=== PATIENT | female | born 1955 | race Caucasian/White ===

== ENCOUNTER 2016-05-25 21:28 | Emergency (ER) | payer BC, OTHER ==
[~2016-05-25] VITALS: Ht 154.9 cm; Wt 110.5 kg
[~2016-05-25 21:28] MED LIST: ASPCH81X PO; ESCI10TA17 PO; LISI5TAB3 PO
[2016-05-25 21:32] VITALS: TEMP 36.5; Ht 154.9 cm; Wt 110.5 kg
[2016-05-25] MEDS ORDERED: CHOLCAP5 PO (21:57)
[2016-05-25] MEDS ORDERED: ASPI81TA28 PO (21:57)
[2016-05-25] MEDS ORDERED: CZR25 PO (21:57)
[2016-05-25] MEDS ORDERED: LXP/20 PO (21:57)
[2016-05-25] MEDS ORDERED: MULT-580 PO (21:59)
[2016-05-25] MEDS ORDERED: CLR10 PO (21:59)
[2016-05-25] MEDS ORDERED: DOXYCYCLINE HYCLATE 100 MG CAP PO STA (22:59)
[2016-05-25] MEDS ORDERED: DOXY100C PO (23:03)
[2016-05-25 23:11] VITALS: BP 178/92; PULSE 58; O2SAT 95
--- NOTE | 2016-05-26 01:09 | EMERGENCY ROOM VISIT NOTE ---
ED Visit Note First contact with patient: 22:31 CHIEF COMPLAINT: Tick bite HISTORY OF PRESENT ILLNESS: This 61-year-old female patient presents to the emergency department after they noticed a tick embedded in the right side breast tonight. The patient did try to remove it. It had been on for as long as 2 or 3 days. The patient has been gardening the past few days, and did not notice the insect until last night. The patient's tetanus shot is reportedly up- to-date. The patient denies any rashes, fevers, chills, or lightheadedness. The patient denies joint tenderness. REVIEW OF SYSTEMS: A 6 system review of systems was completed with positives and pertinent negatives listed in the HPI. ALLERGIES: See EMR MEDICATIONS: See EMR PMH: See EMR SOCIAL HISTORY: Lives no clear PHYSICAL EXAM: Vital Signs: Reviewed Nurse's notes, vital signs stable. GENERAL : White female, in no acute distress, well-developed, well-nourished. SKIN: There is a partially dismantled tick embedded in the patient's medial right breast. There is a and increasing zone of inflammation and eccymosis around the spot where the tick is. The skin is otherwise clear. NEUROLOGICAL: Alert and oriented to person place and time, cooperative. Sensory and motor functions grossly intact. ED COURSE: Physical exam and history were performed. Nursing notes and EMR were reviewed. The patient appears to have suffered a tick bite to her right medial breast. The area was explored and there is no significant foreign body/ insect remaining in the wound. The concern is for the rash itself, as it does have an early appearance of a bull's-eye. The patient will be started on doxycycline for erythema migrans. She is to follow with her primary care physician with any ongoing or persisting symptoms. Problem List Medical Problems: (1) Appendectomy Status: Resolved (2) Benign hypertension Status: Chronic (3) Bilateral salpingectomy with oophorectomy Status: Resolved (4) Bypass gastroenterostomy Status: Resolved (5) CARDIAC DYSRHYTHMIAS NEC Status: Resolved (6) Cholecystectomy Status: Resolved (7) Coronary artery disease Status: Chronic (8) gastric bypass Status: Resolved (9) Heart disease Status: Chronic (10) Hyperlipidemia Status: Chronic (11) HYPERTENSION NOS Status: Chronic (12) Hysterectomy Status: Resolved (13) Implantation of internal cardiac defibrillator Status: Resolved (14) Migraine Status: Chronic (15) MIGRAINE UNSPECIFIED W/O INTRACT MGRN W/O STATUS MIGRAINOSUS Status: Chronic (16) Myocardial infarction Status: Resolved (17) Oophorectomy Status: Resolved Current/Historical Medications Scheduled Aspirin (Aspirin Ec), 81 MG PO QAM Cholecalciferol (Vitamin D3), 5,000 INTER.UNIT PO QAM Doxycycline Hyclate (Vibramycin), 100 MG PO BID Escitalopram Oxalate (Escitalopram Oxalate), 20 MG PO QAM Loratadine (Claritin), 10 MG PO QAM Losartan Potassium (Losartan Potassium), 25 MG PO QPM Multiple Vitamins W/ Minerals (Hair/Skin/Nails), 2 TABS PO QAM Allergies Coded Allergies: Morphine (Verified Allergy, Severe, chest pain, 10/16/15) Latex1 -Allergic Contact Dermititis (Verified Allergy, Mild, RASH WITH RUBBER GLOVES, 10/16/15) [place] (Verified Allergy, Unknown, 10/16/15) Vital Signs Date Time Temp Pulse Resp B/P Pulse Ox O2 Delivery O2 Flow Rate FiO2 05/25/16 23:11 58 18 178/92 95 05/25/16 21:32 36.5 114 18 186/80 95 Room Air Departure Information Impression Primary Impression: Erythema migrans (Lyme disease) Dispostion Home / Self-Care Condition GOOD Prescriptions Doxycycline Hyclate (VIBRAMYCIN) 100 Mg Cap 100 MG PO BID for 21 Days, #42 CAP Prov: Kevin Carcamo PA-C 05/25/16 Forms HOME CARE DOCUMENTATION FORM, IMPORTANT VISIT INFORMATION Patient Instructions My [facility] Additional Instructions You were seen and evaluated today on an emergency basis only. This is not a substitute for, or an effort to provide, complete comprehensive medical care. It is not possible to recognize and treat all injuries or illnesses in a single emergency department visit. For this reason it is recommended that you followup with your primary care physician next week for any ongoing or persistent symptoms. Doxycycline twice a day for 21 days. TAKE THIS MEDICATION WITH A MEAL. Avoid exposure to the sun/UV light while on this medication or use frequent application of SPF 50 or higher due to increased sensitivity to UV rays and high risk for severe sarah. You are welcome to return to the emergency department anytime with new, worsening, or concerning symptoms.
[2016-07-10] MEDS ORDERED: FLVHFA110 INH (11:19)
[2016-07-10] MEDS ORDERED: CYAN1DRO IM (11:19)
[2016-07-10] MEDS ORDERED: LOSA50TA6 PO (11:19)
[2016-07-10] MEDS ORDERED: VNTHFA/IN INH (11:19)
[2016-07-10] MEDS ORDERED: ATRIN INH (11:19)
[2016-07-10] MEDS ORDERED: LORA10TA44 PO (11:19)
== END 2016-05-25 23:10 | disposition home or self-care (01) ==
LOC: C.EDB 21:30 → C.EDD 23:10
DX: A26.0 Cutaneous erysipeloid (principal); A69.20 Lyme disease, unspecified; S20.161A Insect bite (nonvenomous) of breast, right breast, initial encounter; W57.XXXA Bitten or stung by nonvenomous insect and other nonvenomous arthropods, initial encounter; Y93.H2 Activity, gardening and landscaping; I10 Essential (primary) hypertension; I25.10 Atherosclerotic heart disease of native coronary artery without angina pectoris; I51.9 Heart disease, unspecified; E78.5 Hyperlipidemia, unspecified; I25.2 Old myocardial infarction; Z95.810 Presence of automatic (implantable) cardiac defibrillator; Z98.84 Bariatric surgery status; Z90.710 Acquired absence of both cervix and uterus; Z79.82 Long term (current) use of aspirin

== ENCOUNTER → 2016-07-16 | Day surgery (SDC) | payer BC ==
[2016-07-10 11:20] VITALS: Ht 157.5 cm; Wt 105.5 kg
[~2016-07-16] VITALS: Ht 157.5 cm; Wt 105.5 kg
[~2016-07-16] MED LIST changes: -ASPCH81X PO; +ASPI81TA28 PO; +ATRIN INH; +CHOLCAP5 PO; +CYAN1DRO IM; -ESCI10TA17 PO; +FLVHFA110 INH; +GUAI1TAB55 PO; +LIDOCAINE HCL 2% 2 ML VIAL (20MG/ML) ONE; -LISI5TAB3 PO; +LORA10TA44 PO; +LORA10TA51 PO; +LOSA50TA6 PO; +LXP/20 PO; +METH4PAK PO; +MIDAZOLAM HCL 1 MG/ML 2ML VIAL ONE; +MULT-580 PO; +ONDANSETRON INJ 2 MG/ML 2 ML VIAL ONE; +PHEN-652 PO; +PROPOFOL IV EMULSION 10 MG/ML 20 ML VIAL IV ONE; +SODIUM CHLORIDE 0.9% 500ML 500 ML IV ONE; +VNTHFA/IN INH
--- NOTE | 2016-07-16 12:57 | Endo History and Physical ---
History & Physical Date of Service: Jul 16, 2016. Chief Complaint: Family history of colon cancer Referring Physician: Haily BOTELLO History of Present Illness 61 yo CF who presents for colonoscopy secondary to family history of colon cancer. Past Surgical History Hx Cardiac Surgery: Yes (HEART CATH X2, NO STENTS) Hx Internal Defibrillator: Yes (X3 (MOST RECENT 2008)) Hx Pacemaker: Yes (X3 (MOST RECENT 2008)) Hx Abdominal Surgery: Yes (RUSSELL BSO, EXPLORATORY LAP WITH ROCCO AND APPY AND RUPTURED OVARY) Hx of Implantable Prosthesis: No Hx Post-Op Nausea and Vomiting: No Hx Cancer Surgery: No Hx Thoracic Surgery: No Hx Orthopedic: No Hx Urinary Tract Surgery: No Family History Colon CA Social History Smoking Status: Never Smoker Hx Substance Use: No Hx Alcohol Use: No Allergies Coded Allergies: Morphine (Verified Allergy, Severe, CHEST PAIN, 07/16/16) Latex1 -Allergic Contact Dermititis (Verified Allergy, Mild, RASH WITH RUBBER GLOVES, 07/16/16) [place] (Verified Allergy, Unknown, HIVES, 07/16/16) Current Medications Reported Home Medications Medications Dose Route/Sig Max Daily Dose Days Date Category Ventolin Hfa (Albuterol) 200 Puffs/45334 Mcg Aers 2-4 Puffs INH Q6H PRN 07/10/16 Reported Atrovent Hfa (Ipratropium [place]) 200 Puffs/3400 Mcg Aers 2 Puffs INH QID PRN 07/10/16 Reported Flovent Hfa (Fluticasone Propionate) 120 Puffs/99454 Mcg Aero 2 Puffs INH BID PRN 07/10/16 Reported Vitamin B12 (Cyanocobalamin) 3,000 Mcg/Ml Miguel 1 Dose IM [id number] 07/10/16 Reported Allergy (Loratadine) 10 Mg Tab 1 Tab PO QAM 07/10/16 Reported Cozaar (Losartan Potassium) 50 Mg Tab 50 Mg PO QPM 07/10/16 Reported Hair/Skin/Nails (Multiple Vitamins W/ Minerals) 1 Tab Tab 2 Tabs PO QAM 05/25/16 Reported Vitamin D3 (Cholecalciferol) 5,000 Unit Cap 5,000 Inter.unit PO QAM 05/25/16 Reported Escitalopram Oxalate 20 Mg Tab 20 Mg PO QAM 05/25/16 Reported Aspirin Ec (Aspirin) 81 Mg Tab 81 Mg PO QAM 2/24/17 Reported Vital Signs Weight (Kilograms): 105.45 Height (Feet): 5 Height (Inches): 2 Date Time Temp Pulse Resp B/P Pulse Ox O2 Delivery O2 Flow Rate FiO2 07/16/16 12:24 36.7 52 18 166/74 94 Room Air Physical Exam General Appearance: WD/WN, no apparent distress Respiratory/Chest: Auscultation: breath sounds normal Cardiovascular: Heart Auscultation: RRR Abdomen: Bowel Sounds: normal Inspection & Palpation: soft, non-distended, no tenderness, guarding & rebound Assessment and Plan Assessment: 61 yo CF who presents for colonoscopy secondary to family history of colon cancer. Plan: Proceed with colonoscopy.
--- NOTE | 2016-07-16 13:23 | Discharge Instructions ---
Endoscopy Patient Instructions Date / Procedure(s) Performed Jul 16, 2016. Colonoscopy Allergy Information Coded Allergies: Morphine (Verified Allergy, Severe, CHEST PAIN, 07/16/16) Latex1 -Allergic Contact Dermititis (Verified Allergy, Mild, RASH WITH RUBBER GLOVES, 07/16/16) [place] (Verified Allergy, Unknown, HIVES, 07/16/16) Discharge Date / Findings Jul 16, 2016. Diverticulosis Medication Instructions Stopped Medication(s): took ASA yesterday Restart Stopped Medication(s): OK to resume all medications today as prescribed Reported Home Medications Medications Dose Route/Sig Max Daily Dose Days Date Category Ventolin Hfa (Albuterol) 200 Puffs/19673 Mcg Aers 2-4 Puffs INH Q6H PRN 07/10/16 Reported Atrovent Hfa (Ipratropium [place]) 200 Puffs/3400 Mcg Aers 2 Puffs INH QID PRN 07/10/16 Reported Flovent Hfa (Fluticasone Propionate) 120 Puffs/33651 Mcg Aero 2 Puffs INH BID PRN 07/10/16 Reported Vitamin B12 (Cyanocobalamin) 3,000 Mcg/Ml Miguel 1 Dose IM [id number] 07/10/16 Reported Allergy (Loratadine) 10 Mg Tab 1 Tab PO QAM 07/10/16 Reported Cozaar (Losartan Potassium) 50 Mg Tab 50 Mg PO QPM 07/10/16 Reported Hair/Skin/Nails (Multiple Vitamins W/ Minerals) 1 Tab Tab 2 Tabs PO QAM 05/25/16 Reported Vitamin D3 (Cholecalciferol) 5,000 Unit Cap 5,000 Inter.unit PO QAM 05/25/16 Reported Escitalopram Oxalate 20 Mg Tab 20 Mg PO QAM 05/25/16 Reported Aspirin Ec (Aspirin) 81 Mg Tab 81 Mg PO QAM 05/25/16 Reported Provider Instructions Activity Restrictions - No exercising or heavy lifting for 24 hours. - Do not drink alcohol the day of the procedure. - Do not drive a car or operate machinery until the day after the procedure. - Do not make any important decisions or sign important papers in 24 hours after the procedure. Following Day: - Return to full activity which may include returning to work/school. Diet Start your diet with liquids and light foods (jello, soup, juice, toast). Then eat your usual diet if not nauseated. Treatment For Common After Affects For mild abdominal pain, bloating, or excessive gas: - Rest - Eat lightly - Lie on right side Follow-Up Information Follow-up with Haily BOTELLO as scheduled Anesthesia Information What You Should Know You have had a procedure that required some medicine to reduce anxiety and discomfort. This treatment is called moderate sedation. After receiving the treatment, you may be sleepy, but you will be able to breathe on your own. The effects of the treatment may last for several hours. Follow these instructions along with Activity/Diet recommendations noted above: * Do NOT do anything where dizziness or clumsiness would be dangerous. * Rest quietly at home today, then you can be up and about tomorrow. * Have a responsible person stay with you the rest of today. * You may have had an I.V. today. If so, you may take the dressing off later today. Recommendations Call your doctor if: * Trouble breathing * Continuous vomiting for more than 24 hours * Temperature above 101 degrees * Severe abdominal pain or bloating * Pain not relieved by pain medicine ordered * There is increased drainage or redness from any incision * A large amount of rectal bleeding greater than 2-3 tablespoons. (If you had a polyp/s removed or have hemorrhoids, a small amount of blood - from the rectum is to be expected.) * You have any unanswered questions or concerns. IN THE EVENT OF A SERIOUS EMERGENCY, GO TO THE NEAREST EMERGENCY ROOM Your discharge instructions were prepared by provider Raghavendra Holley. Patient Instructions Signature Page Nimco Briggs Patient (or Guardian) Signature/Date: I have read and understand the instructions given to me by my caregivers. Caregiver/RN/Doctor Signature/Date: The above-named patient and/or guardian has received patient instructions on this date. + Original Patient Signature Page (only) stays with chart. Please make copy for patient.
--- NOTE | 2016-07-16 13:26 | GI REPORT ---
Procedure Date: 07/16/2016 12:34 PM Procedure: Colonoscopy Indications: Family history of colon cancer in a first-degree relative Medicines: Monitored Anesthesia Care Complications: No immediate complications. Estimated Blood Loss: Estimated blood loss: none. Procedure: Pre-Anesthesia Assessment: - Prior to the procedure, a History and Physical was performed, and patient medications and allergies were reviewed. The patient's tolerance of previous anesthesia was also reviewed. The risks and benefits of the procedure and the sedation options and risks were discussed with the patient. All questions were answered, and informed consent was obtained. Prior Anticoagulants: The patient has taken aspirin, last dose was 1 day prior to procedure. ASA Grade Assessment: IV - A patient with severe systemic disease that is a constant threat to life. After reviewing the risks and benefits, the patient was deemed in satisfactory condition to undergo the procedure. After I obtained informed consent, the scope was passed under direct vision. Throughout the procedure, the patient's blood pressure, pulse, and oxygen saturations were monitored continuously. The Scope was introduced through the anus and advanced to the cecum, identified by appendiceal orifice and ileocecal valve. The colonoscopy was performed without difficulty. The patient tolerated the procedure well. The quality of the bowel preparation was good. The ileocecal valve, appendiceal orifice, and rectum were photographed. Findings: Multiple small-mouthed diverticula were found in the sigmoid colon. The exam was otherwise without abnormality. Impression: - Diverticulosis in the sigmoid colon. - The examination was otherwise normal. - No specimens collected. Recommendation: - Resume previous diet. - Continue present medications. - Repeat colonoscopy in 5 years for surveillance. - Return to primary care physician as previously scheduled. Raghavendra Holley, 07/16/2016 1:25:29 PM This report has been signed electronically. Note Initiated On: 07/16/2016 12:34 PM I attest to the content of the Intraoperative Record and orders documented therein, exceptions below
[2016-07-16 14:00] VITALS: BP 146/80; PULSE 48; O2SAT 98
--- NOTE | 2016-07-16 14:07 | Anesthesiology Progress Note ---
Anesthesia Post Op Note Date & Time Jul 16, 2016 at 14:06 Vital Signs Pain Intensity: 0 Vital Signs Past 12 Hours Date Time Temp Pulse Resp B/P Pulse Ox O2 Delivery O2 Flow Rate FiO2 07/16/16 14:00 48 20 146/80 98 Room Air 07/16/16 13:45 53 20 133/69 97 Room Air 07/16/16 13:31 48 20 134/72 97 Room Air 07/16/16 12:24 36.7 52 18 166/74 94 Room Air Notes Mental Status: alert / awake / arousable, participated in evaluation Pt Amnestic to Procedure: Yes Nausea / Vomiting: adequately controlled Pain: adequately controlled Airway Patency, RR, SpO2: stable & adequate BP & HR: stable & adequate Hydration State: stable & adequate Anesthetic Complications: no major complications apparent
== END | disposition home or self-care (01) ==
LOC: C.GI 11:58
PROVIDERS: ATTEND Internal Medicine
DX: Z12.11 Encounter for screening for malignant neoplasm of colon (principal); K57.30 Diverticulosis of large intestine without perforation or abscess without bleeding; Z80.0 Family history of malignant neoplasm of digestive organs; Z68.41 Body mass index [BMI] 40.0-44.9, adult; J45.909 Unspecified asthma, uncomplicated; E66.01 Morbid (severe) obesity due to excess calories; Z98.890 Other specified postprocedural states; Z91.018 Allergy to other foods; Z90.49 Acquired absence of other specified parts of digestive tract; Z90.89 Acquired absence of other organs; Z88.0 Allergy status to penicillin; Z91.040 Latex allergy status

== ENCOUNTER → 2016-09-14 | Outpatient (CLI) | payer BC ==
[~2016-09-14] MED LIST changes: -LIDOCAINE HCL 2% 2 ML VIAL (20MG/ML) ONE; -MIDAZOLAM HCL 1 MG/ML 2ML VIAL ONE; -ONDANSETRON INJ 2 MG/ML 2 ML VIAL ONE; -PROPOFOL IV EMULSION 10 MG/ML 20 ML VIAL IV ONE; -SODIUM CHLORIDE 0.9% 500ML 500 ML IV ONE
[2016-09-14 12:31] LABS: ALT/SGPT 16 U/L (12-78); BLOOD UREA NITROGEN 14 mg/dl (7-18); BUN/CREATININE RATIO 14.2 (10-20); CARBON DIOXIDE 26 mmol/L (21-32); CHLORIDE 108 mmol/L (98-107); CHOLESTEROL 139 mg/dl (0-200); CREATININE 0.95 mg/dl (0.60-1.20); GLUCOSE 90 mg/dl (70-99); SODIUM 144 mmol/L (136-145); TRIGLYCERIDES 68 mg/dl (0-150); VERY LOW DENSITY LIPOPROT CALC 14 mg/dl
[2016-09-14 12:34] LABS: ALB/GLOB RATIO 1.1 (0.9-2); ALKALINE PHOSPHATASE 102 U/L (45-117); AST/SGOT 15 U/L (15-37); CHOLESTEROL/HDL RATIO 3.5; HDL CHOLESTEROL 40 mg/dl; LDL CHOLESTEROL CALCULATED 85 mg/dl
[2016-09-14 12:54] LABS: ESTIMATED AVERAGE GLUCOSE 94 mg/dl; HA1C FLAG Normal (Normal)
== END | disposition home or self-care (01) ==
LOC: C.LABBFT 09:13
PROVIDERS: ATTEND Nurse Practitioner
DX: E78.00 Pure hypercholesterolemia, unspecified (principal); R73.01 Impaired fasting glucose

== ENCOUNTER → 2016-09-19 | Outpatient (CLI) | payer BC ==
[2016-09-19 17:58] LABS: THYROID STIMULATING HORMONE 1.15 uIu/ml (0.300-4.500)
[2016-09-19 18:25] LABS: LYME DISEASE AB IGG NEG (NEG); LYME DISEASE AB IGM NEG (NEG)
== END | disposition home or self-care (01) ==
LOC: C.LABBFT 09-18 08:24
PROVIDERS: ATTEND Nurse Practitioner
DX: R53.83 Other fatigue (principal)

== ENCOUNTER 2017-01-27 14:32 | Emergency (ER) | payer BC ==
[~2017-01-27] VITALS: Ht 157.5 cm; Wt 106.0 kg
[~2017-01-27 14:32] MED LIST changes: -ASPI81TA28 PO; -CHOLCAP5 PO; -GUAI1TAB55 PO; -LORA10TA51 PO; -LXP/20 PO; -METH4PAK PO; -MULT-580 PO; -PHEN-652 PO
[2017-01-27 14:42] VITALS: Ht 157.5 cm; Wt 106.0 kg
[2017-01-27] MEDS ORDERED: ALBUT/IPRATROP 3MG/0.5MG NEB 3 ML VIAL INH STA (15:13)
--- NOTE | 2017-01-27 15:21 | EMERGENCY ROOM VISIT NOTE ---
History First contact with patient: 15:03 Chief Complaint: COUGH Stated Complaint: COUGH,CHILLS,SORE THROAT,HEAVY IN CHEST Nursing Triage Summary: Patient c/o of chest cold, headache, sorethroat, nausea, coughing and chills since Saturday night. History of Present Illness The patient is a 61 year old female who presents to the Emergency Room with complaints of cough and general illness which began 4 days ago. The patient states that she has had chills, nausea, coughing, sneezing, sore throat and headache which has been gradually worsening over the past 4 days. The cough is not productive. She complains of some chest tightness but denies any chest pain. She does state that at times it is difficult to take a deep breath. Her symptoms are worse in the evening and at night. She reports a history of a gastric bypass and pacemaker/defibrillator. She is not a smoker. She denies any history of COPD or asthma. She denies any fevers/chills, neck pain/ stiffness, vomiting, abdominal pain, or hemoptysis. Review of Systems A complete 10 point review of systems was reviewed with the patient with pertinent positives and negatives as per history of present illness. All else were negative. Past Medical/Surgical History Medical Problems: (1) Appendectomy (2) Benign hypertension (3) Bilateral salpingectomy with oophorectomy (4) Bypass gastroenterostomy (5) CARDIAC DYSRHYTHMIAS NEC (6) Cholecystectomy (7) Coronary artery disease (8) gastric bypass (9) Heart disease (10) Hyperlipidemia (11) HYPERTENSION NOS (12) Hysterectomy (13) Implantation of internal cardiac defibrillator (14) Migraine (15) MIGRAINE UNSPECIFIED W/O INTRACT MGRN W/O STATUS MIGRAINOSUS (16) Myocardial infarction (17) Oophorectomy Family History Diabetes mellitus FH: cancer Heart disease Social History Smoking Status: Never Smoker Alcohol Use: none Drug Use: none Marital Status: Housing Status: lives with family Occupation Status: employed Current/Historical Medications Scheduled Aspirin (Aspirin Ec), 81 MG PO QAM Cholecalciferol (Vitamin D3), 5,000 INTER.UNIT PO QAM Cyanocobalamin (Vitamin B12), 1 DOSE IM [id number] Escitalopram Oxalate (Escitalopram Oxalate), 20 MG PO QAM Loratadine (Claritin), 10 MG PO DAILY Losartan Potassium (Cozaar), 50 MG PO QPM Methylprednisolone (Medrol Dosepak), 1 PKT PO UD Multiple Vitamins W/ Minerals (Hair/Skin/Nails), 2 TABS PO QAM Phenylephrine W/ Dm-GG (Mucinex Congestion & Coug 2.5-5-100 mg/5Ml), 5 ML PO PRN UD Scheduled PRN Albuterol Hfa (Ventolin Hfa), 2-4 PUFFS INH Q6H PRN for SOB/Wheezing Fluticasone Propionate (Flovent Hfa), 2 PUFFS INH BID PRN for Shortness of Breath Guaifenesin Ext Rel (Mucinex Ext Rel), 600 MG PO Q12 PRN for CONGESTION Ipratropium [place] (Atrovent Hfa), 2 PUFFS INH QID PRN for SOB/Wheezing Physical Exam Vital Signs Date Time Temp Pulse Resp B/P (MAP) Pulse Ox O2 Delivery O2 Flow Rate FiO2 01/27/17 17:52 36.5 60 20 139/70 98 01/27/17 17:51 60 20 139/70 98 Room Air 01/27/17 17:20 60 20 109/79 99 Room Air 01/27/17 16:38 58 20 132/53 97 Room Air 3.0 01/27/17 16:26 60 01/27/17 15:59 62 20 170/76 86 Room Air 01/27/17 14:45 97 Room Air 01/27/17 14:42 36.5 55 18 177/98 96 Room Air Physical Exam VITALS: Vitals are noted on the nurse's note and reviewed by myself. Vital signs stable. GENERAL: This is a 61-year-old female, in no acute distress, nondiaphoretic, well-developed well-nourished. SKIN: The skin was without rashes. EARS: External auditory canals clear, tympanic membranes pearly jorge without erythema or effusion bilaterally. EYES: Pupils equal round and reactive to light and accommodation. Conjunctivae without injection, sclerae without icterus. NOSE: Patent, turbinates without inflammation or discharge. MOUTH: Mucous membranes moist. Tonsils are not enlarged. Pharynx without erythema or exudate. NECK: Supple without nuchal rigidity. No lymphadenopathy. HEART: Regular rate and rhythm without murmurs gallops or rubs. LUNGS: Clear to auscultation bilaterally without wheezes, rales or rhonchi. No retractions or accessory muscle use. ABDOMEN: Positive bowel sounds x 4. Soft, nontender to palpation. NEURO: Patient was alert and oriented to person place and time. Medical Decision & Procedures ER Provider Diagnostic Interpretation: CHEST 2 VIEWS ROUTINE CLINICAL HISTORY: cough, chest tightness dyspnea COMPARISON STUDY: 10/16/2015 FINDINGS: Permanent unipolar cardiac pacemaker/defibrillator. Lungs are clear. Diaphragms are smooth. No acute infiltrate. IMPRESSION: No acute process. Lungs are clear. Laboratory Results 01/27/17 15:47 Red Blood Count 5.01, Mean Corpuscular Volume 89.8, Mean Corpuscular Hemoglobin 30.5, Mean Corpuscular Hemoglobin Concent 34.0, Mean Platelet Volume 11.2, Neutrophils (%) (Auto) 49.6, Lymphocytes (%) (Auto) 35.1, Monocytes (%) (Auto) 11.6, Eosinophils (%) (Auto) 2.5, Basophils (%) (Auto) 0.6, Neutrophils # (Auto ) 1.58, Lymphocytes # (Auto) 1.12, Monocytes # (Auto) 0.37, Eosinophils # (Auto ) 0.08, Basophils # (Auto) 0.02 01/27/17 15:47 Test 01/27/17 15:42 01/27/17 15:47 Influenza Type A Antigen Neg for Influ A (NEG) Influenza Type B Antigen Neg for Influ B (NEG) White Blood Count 3.19 K/uL (4.8-10.8) Red Blood Count 5.01 M/uL (4.2-5.4) Hemoglobin 15.3 g/dL (12.0-16.0) Hematocrit 45.0 % (37-47) Mean Corpuscular Volume 89.8 fL (80-100) Mean Corpuscular Hemoglobin 30.5 pg (25-34) Mean Corpuscular Hemoglobin Concent 34.0 g/dl (32-36) Platelet Count 165 K/uL (130-400) Mean Platelet Volume 11.2 fL (7.4-10.4) Neutrophils (%) (Auto) 49.6 % Lymphocytes (%) (Auto) 35.1 % Monocytes (%) (Auto) 11.6 % Eosinophils (%) (Auto) 2.5 % Basophils (%) (Auto) 0.6 % Neutrophils # (Auto) 1.58 K/uL (1.4-6.5) Lymphocytes # (Auto) 1.12 K/uL (1.2-3.4) Monocytes # (Auto) 0.37 K/uL (0.11-0.59) Eosinophils # (Auto) 0.08 K/uL (0-0.5) Basophils # (Auto) 0.02 K/uL (0-0.2) RDW Standard Deviation 41.0 fL (36.4-46.3) RDW Coefficient of Variation 12.6 % (11.5-14.5) Immature Granulocyte % (Auto) 0.6 % Immature Granulocyte # (Auto) 0.02 K/uL (0.00-0.02) Anion Gap 7.0 mmol/L (3-11) Est Creatinine Clear Calc Drug Dose 67.2 ml/min Estimated GFR () 71.2 Estimated GFR (Non- 61.4 BUN/Creatinine Ratio 9.0 (10-20) Calcium Level 8.5 mg/dl (8.5-10.1) Total Bilirubin 0.4 mg/dl (0.2-1) Aspartate Amino Transf (AST/SGOT) 21 U/L (15-37) Alanine Aminotransferase (ALT/SGPT) 22 U/L (12-78) Alkaline Phosphatase 107 U/L (45-117) Troponin I < 0.015 ng/ml (0-0.045) Total Protein 7.7 gm/dl (6.4-8.2) Albumin 3.9 gm/dl (3.4-5.0) Globulin 3.8 gm/dl (2.5-4.0) Albumin/Globulin Ratio 1.0 (0.9-2) Medications Administered Medications (Trade) Dose Ordered Sig/Cammie Route Start Time Stop Time Status Last Admin Dose Admin Albuterol/ Ipratropium (Duoneb) 3 ml NOW STAT INH 01/27/17 15:13 01/27/17 15:17 DC 01/27/17 15:41 3 ML ED Course The patient was evaluated as above. Labs were drawn and IV access was obtained. Patient was medicated with a DuoNeb treatment. Patient was reevaluated and felt much better after the DuoNeb treatment. Discharge instructions were reviewed with the patient. The patient verbalized understanding of my assessment and treatment plan and was discharged home in good condition. Medical Decision Differential diagnosis includes pneumonia, acute bronchitis, influenza, viral illness, cardiac, among others. The patient is a 61-year-old female who presents today complaining of cough and flulike symptoms. Labs revealed no concerning leukocytosis, anemia or concerning electrolyte abnormalities. Chest x-ray shows no evidence of pneumonia. EKG is unremarkable. Patient felt much better after a DuoNeb treatment. Symptoms are likely secondary to a viral bronchitis. She has had steroids in the past for similar symptoms and has done well with those. She will be placed on a Medrol Dosepak and was instructed to follow-up with her primary care provider for a recheck. She has a Ventolin inhaler at home from a previous illness which she will use as needed. Based on the patient's presentation and work up, I feel the patient is stable for outpatient treatment. The patient was educated to return to the emergency department for any worsening of their current condition or new/concerning symptoms. She will follow up with her PCP. Impression Primary Impression: Acute bronchitis Departure Information Dispostion Home / Self-Care Condition GOOD Prescriptions Methylprednisolone (MEDROL DOSEPAK) 4 Mg Ricky 1 PKT PO UD for 6 Days, #1 PKT Prov: Leanne Jacinto ., BIB 01/27/17 Referrals Haily Kay, C.R.N.P. (PCP) Patient Instructions My [facility] Additional Instructions You have been prescribed a Medrol Dosepak. This is a steroid which will help decrease your inflammation, redness, and itch. Take the medicine as prescribed. Take the ENTIRE 6 day course of the steroids. Use the inhaler as needed for cough/shortness of breath. For pain control, you can use the following cuss-ejy-vvanses medicines (if >12 yo): - Regular strength (325mg/tab) Tylenol (acetaminophen) 2 tabs every 4-6 hours as needed. Do not exceed 12 tablets in a 24 hour period. Avoid taking more than 4 grams (4000 mg) of Tylenol per day. This includes any other sources of acetaminophen you may take on a regular basis. - Regular strength (200 mg/tab) Advil (ibuprofen) 1-2 tabs every 4-6 hours as needed. Do not exceed a dose of 3200 mg per day. Rest and drink plenty of fluid. Follow-up with your primary care provider within 2-3 days. Return to the emergency department with worsening shortness of breath, worsening cough, coughing up blood, chest pain, or any other new/concerning symptoms. Problem Qualifiers Primary Impression: Acute bronchitis Bronchitis organism: unspecified organism Qualified Codes: J20.9 - Acute bronchitis, unspecified
[2017-01-27 16:01] LABS: BASO % 0.6 %; BASO ABS # 0.02 K/uL (0-0.2); COMPLETE YES; EOS % 2.5 %; IG% 0.6 %; LYMPH % 35.1 %; LYMPH ABS # 1.12 K/uL (1.2-3.4); MEAN CELL VOLUME 89.8 fL (80-100); MEAN CORPUSCULAR HEMOGLOBIN 30.5 pg (25-34); MEAN PLATELET VOLUME 11.2 fL (7.4-10.4); MONO % 11.6 %; NEUT % 49.6 %; PLATELET COUNT 165 K/uL (130-400); RED BLOOD COUNT 5.01 M/uL (4.2-5.4); WHITE BLOOD COUNT 3.19 K/uL (4.8-10.8)
[2017-01-27 16:18] LABS: ALT/SGPT 22 U/L (12-78); AST/SGOT 21 U/L (15-37); BLOOD UREA NITROGEN 9 mg/dl (7-18); CALCIUM 8.5 mg/dl (8.5-10.1); CARBON DIOXIDE 27 mmol/L (21-32); CHLORIDE 104 mmol/L (98-107); CREATININE 0.98 mg/dl (0.60-1.20); GLUCOSE 86 mg/dl (70-99); POTASSIUM 3.8 mmol/L (3.5-5.1); SODIUM 138 mmol/L (136-145)
[2017-01-27 16:23] LABS: ALKALINE PHOSPHATASE 107 U/L (45-117)
--- NOTE | 2017-01-27 16:23 | DIAGNOSTIC IMAGING REPORT ---
CHEST 2 VIEWS ROUTINE CLINICAL HISTORY: cough, chest tightness dyspnea COMPARISON STUDY: 10/16/2015 FINDINGS: Permanent unipolar cardiac pacemaker/defibrillator. Lungs are clear. Diaphragms are smooth. No acute infiltrate. IMPRESSION: No acute process. Lungs are clear. The above report was generated using voice recognition software. It may contain grammatical, syntax or spelling errors. Electronically signed by: Michael Pathak M.D. 01/27/2017 4:21 PM Dictated Date/Time: 01/27/2017 4:21 PM
[2017-01-27] MEDS ORDERED: LORA10TA51 PO (16:28)
[2017-01-27] MEDS ORDERED: GUAI1TAB55 PO (16:31)
[2017-01-27] MEDS ORDERED: PHEN-652 PO (16:31)
[2017-01-27] MEDS ORDERED: METH4PAK PO (17:23)
[2017-01-27 17:52] VITALS: BP 139/70; PULSE 60; TEMP 36.5; O2SAT 98
[2017-01-27] MEDS ORDERED: LXP/20 PO (21:57)
[2017-01-27] MEDS ORDERED: ASPI81TA28 PO (21:57)
[2017-01-27] MEDS ORDERED: CHOLCAP5 PO (21:57)
[2017-01-27] MEDS ORDERED: MULT-580 PO (21:59)
== END 2017-01-27 17:53 | disposition home or self-care (01) ==
LOC: C.EDB 14:33
DX: J20.9 Acute bronchitis, unspecified (principal); Z98.84 Bariatric surgery status; Z95.0 Presence of cardiac pacemaker; I11.9 Hypertensive heart disease without heart failure; E78.5 Hyperlipidemia, unspecified; G43.909 Migraine, unspecified, not intractable, without status migrainosus; I25.2 Old myocardial infarction; Z83.3 Family history of diabetes mellitus; Z79.82 Long term (current) use of aspirin; Z79.899 Other long term (current) drug therapy

== ENCOUNTER → 2017-08-12 | Outpatient (CLI) | payer OTHER ==
[~2017-08-12] MED LIST changes: +ASPI81TA28 PO; +CHOLCAP5 PO; +GUAI1TAB55 PO; -LORA10TA44 PO; +LORA10TA51 PO; +LXP/20 PO; +MULT-580 PO; +PHEN-652 PO
[2017-08-12 12:49] LABS: BLOOD UREA NITROGEN 13 mg/dl (7-18); CALCIUM 9.1 mg/dl (8.5-10.1); CARBON DIOXIDE 29 mmol/L (21-32); CREATININE 0.88 mg/dl (0.60-1.20); GLUCOSE 87 mg/dl (70-99); POTASSIUM 3.6 mmol/L (3.5-5.1); SODIUM 140 mmol/L (136-145)
== END | disposition home or self-care (01) ==
LOC: C.LABBFT 07:25
PROVIDERS: ATTEND Nurse Practitioner
DX: E53.8 Deficiency of other specified B group vitamins (principal); E55.9 Vitamin D deficiency, unspecified; I10 Essential (primary) hypertension